=== PATIENT | female | born 1975 | race Caucasian/White ===

== ENCOUNTER 2023-09-04 10:54 | Inpatient (IN) | payer MEDICAID ==
[2023-09-04] MEDS: Ondansetron 4 MG/2 ML SDV IVPUSH ONE ×2 (11:40→15:42)
[2023-09-04] MEDS: HYDROmorphone 0.5 MG/0.5 ML Syringe IVPUSH PRN (11:41)
[2023-09-04] MEDS: Sodium Chloride 0.9% 10 ML Syringe FLUSH ONE (11:42)
[2023-09-04] MEDS: Sodium Chloride 0.9% 1,000 ML IV ONE (11:42)
[2023-09-04 11:58] LABS: APPEARANCE,URINE CLEAR (CLEAR); BILIRUBIN,URINE NEGATIVE (NEGATIVE); COLOR,URINE YELLOW (YELLOW); GLUCOSE,URINE NEGATIVE (NEGATIVE); KETONES,URINE NEGATIVE (NEGATIVE); LEUKOCYTE ESTERASE,URINE NEGATIVE (NEGATIVE); NITRITE,URINE NEGATIVE (NEGATIVE); OCCULT BLOOD,URINE NEGATIVE (NEGATIVE); PROTEIN,URINE NEGATIVE (NEGATIVE); UROBILINOGEN,URINE 0.2 EU/dL (0.2-1.0)
[2023-09-04 12:05] LABS: AMPHETAMINES SCREEN, URINE NEGATIVE (NEGATIVE); BARBITURATE SCREEN,URINE NEGATIVE (NEGATIVE); BENZODIAZEPINES SCREEN,URINE NEGATIVE (NEGATIVE); METHAMPHETAMINES SCREEN, URINE NEGATIVE (NEGATIVE)
[2023-09-04 12:06] LABS: METHADONE SCREEN, URINE PRESUMPTIVE POSITIVE (NEGATIVE); OXYCODONE SCREEN,URINE NEGATIVE (NEGATIVE); PROPOXYPHENE SCREEN,URINE NEGATIVE (NEGATIVE); THC SCREEN,URINE 50 NG/ML NEGATIVE (NEGATIVE)
[2023-09-04 12:08] LABS: AMORPHOUS SEDIMENT,URINE NOT SEEN; BACTERIA,URINE NOT SEEN; EPITHELIAL CELLS,URINE NOT SEEN; MUCUS,URINE NOT SEEN; RBC,URINE 0-5 (0-5); WBC,URINE 0-5 (0-5)
[2023-09-04] MEDS: Sodium Chloride 0.9% 80 ML IV SCH (12:16)
[2023-09-04] MEDS: Iopamidol 612 MG/ML 100 ML Bottle IV PRN (12:16)
[2023-09-04] MEDS ORDERED: Naloxone 0.4 MG/ML SDV IVPUSH PRN (12:29)
[2023-09-04 12:33] LABS: CORONAVIRUS COVID-19 NAA NEGATIVE (NEGATIVE); INFLUENZA A NAA NEGATIVE (NEGATIVE); INFLUENZA B NAA NEGATIVE (NEGATIVE); RESPIRATORY SYNCYTIAL VIR NAA NEGATIVE (NEGATIVE)
[2023-09-04] MEDS: HYDROmorphone 1 MG/ML Syringe IVPUSH ONE (12:49)
[2023-09-04] MEDS: metroNIDAZOLE/Normal Saline 500 MG in Premix Bag 1 BAG IV ONE (14:16)
[2023-09-04] MEDS: Morphine 4 MG/ML Syringe IVPUSH ONE (15:41)
[2023-09-04] MEDS ORDERED: Rocuronium 50 MG/5 ML Vial ONE (16:17)
[2023-09-04] MEDS ORDERED: Succinylcholine 200 MG/10 ML MDV ONE (16:17)
[2023-09-04] MEDS ORDERED: Glycopyrrolate 0.2 MG/ML 5 ML MDV ONE (16:17)
[2023-09-04] MEDS ORDERED: Propofol 200 MG/20 ML SDV ONE (16:17)
[2023-09-04] MEDS ORDERED: fentaNYL 250 MCG/5 ML SDV ONE ×2 (16:17→16:43)
[2023-09-04] MEDS ORDERED: Dexamethasone 4 MG/ML SDV ONE (16:17)
[2023-09-04] MEDS ORDERED: Ondansetron 4 MG/2 ML SDV ONE (16:17)
[2023-09-04] MEDS ORDERED: Neostigmine Methylsulfate 10 MG/10 ML MDV ONE (16:17)
[2023-09-04] MEDS ORDERED: Lactated Ringers 1,000 ML ONE (16:30)
[2023-09-04] MEDS ORDERED: Benzocaine/Cetylpyridinium/Menthol Lozenge MUCMEM PRN (16:41)
[2023-09-04] MEDS ORDERED: Zolpidem 5 MG Tab PO PRN (16:41)
[2023-09-04] MEDS ORDERED: Docusate Sodium 100 MG Cap PO PRN (16:41)
[2023-09-04] MEDS ORDERED: Labetalol 20 MG/4 ML Syringe ONE (16:56)
[2023-09-04] MEDS: Ropivacaine 50 ML, dexAMETHasone 8 MG, EPINEPHrine 0.4 MG, Sodium Chloride 0.9% 27.6 ML NERVRT SCH (17:05)
[2023-09-04] MEDS: Bupivacaine 0.5%/EPINEPHrine 1:200,000 50 ML MDV ONE (17:15)
[2023-09-04] MEDS ORDERED: Sugammadex Sodium 200 MG/2 ML VIAL IV ONE (17:22)
[2023-09-04] MEDS ORDERED: fentaNYL 100 MCG/2 ML SDV ONE ×2 (17:25→17:29)
[2023-09-04] MEDS ORDERED: Ondansetron 4 MG/2 ML SDV IV PRN (17:48)
[2023-09-04] MEDS ORDERED: Ondansetron 4 MG Tab.DIS PO PRN (17:48)
[2023-09-04] MEDS ORDERED: Sennosides/Docusate Sodium 50-8.6 MG Tab PO PRN (17:48)
[2023-09-04] MEDS ORDERED: Magnesium Hydroxide 400 MG/5 ML Susp 30 ML Cup PO PRN (17:48)
[2023-09-04] MEDS: Acetaminophen/HYDROcodone 325-5 MG Tab PO PRN (18:31)
[2023-09-04] MEDS: Gabapentin 400 MG Cap PO SCH (19:04)
[2023-09-04] MEDS: Lactated Ringers 1,000 ML IV SCH (19:23)
[2023-09-04] MEDS: hydrOXYzine HCL 100 MG/2 ML SDV IM PRN (20:55)
[2023-09-04] MEDS: Piperacillin/Tazobactam 4.5 GM in Sodium Chloride 0.9% 100 ML IV ONE (21:12)
[2023-09-04] MEDS: oxyCODONE 5 MG Tab PO PRN (22:27)
[2023-09-05] MEDS: Piperacillin/Tazobactam 4.5 GM in Sodium Chloride 0.9% 100 ML IV SCH (01:28)
[2023-09-05] MEDS: Morphine 2 MG/ML SYRINGE IVPUSH PRN (04:02)
[2023-09-05] MEDS: Nicotine 14 MG/24 Hr Patch TRDERM PRN (04:02)
[2023-09-05 05:39] LABS: HEMATOCRIT 33.4 % (34.3-46.0); HEMOGLOBIN 11.6 g/dL (11.2-15.5); MEAN CORPUSCULAR HEMOGLOBIN 30.7 pg (31.6-35.5); MEAN CORPUSCULAR HGB CONC 34.7 g/dL (31.6-35.5); MEAN CORPUSCULAR VOLUME 88.4 fL (81.4-99.0); RED BLOOD CELL COUNT 3.78 M/uL (3.77-5.24); WHITE BLOOD CELL COUNT,WBC 19.9 K/uL (3.2-11.0)
[2023-09-05 05:58] LABS: CALCIUM 8.4 mg/dL (8.5-10.1); CREATININE 0.9 mg/dL (0.6-1.0); EST CRCL DRUG DOSING (CG) 71.56 mL/min; POTASSIUM,K 4.1 mmol/L (3.6-5.2)
[2023-09-05 06:07] LABS: ANION GAP 13.1 mmol/L (5.0-14.0)
[2023-09-05] MEDS: Acetaminophen 325 MG Tab PO PRN (08:09)
[2023-09-05] MEDS: Piperacillin/Tazobactam/Dext 4.5 GM in Premix Bag 1 BAG IV SCH (08:46)
== END 2023-09-05 13:14 | disposition home or self-care (01) | DRG 399 ==
LOC: JP.ED 10:54 → JP.SDS 15:55 → JP.MS 15:56
PROVIDERS: ADMIT Internal Medicine; ATTEND Surgery
PROC: 0DTJ4ZZ Resection of Appendix, Percutaneous Endoscopic Approach (ICD-10-PCS; principal; 2023-09-04 15:15)
DX: K35.211 Acute appendicitis with generalized peritonitis, with perforation and abscess (principal); D72.829 Elevated white blood cell count, unspecified; K21.9 Gastro-esophageal reflux disease without esophagitis; F41.9 Anxiety disorder, unspecified; F17.210 Nicotine dependence, cigarettes, uncomplicated; Z86.16 Personal history of COVID-19; Z90.49 Acquired absence of other specified parts of digestive tract; Z79.899 Other long term (current) drug therapy
CPT/HCPCS: 00840-QZ; 0241U; 36415; 74177; 74177-26; 80048; 80305-QW; 81001; 81025; 85027; 87070; 87075; 87077; 87186; 87205; 88304; 96361; 96365; 96367; 96375; 96376; 99223; 99238; 99285; 99285-25; A9270-GY; J0171; J0330; J0713; J1100; J1170; J1596; J1836; J1920; J2270; J2405; J2543; J2704; J2710; J2795; J3010; J3410; J3490; J7030; J7120; Q9967